=== PATIENT | female | born 1955 | race Caucasian/White ===

== ENCOUNTER → 2024-03-25 08:39 | Outpatient (REF) | payer MEDICARE, OTHER, SELFPAY | LOC: RAD 08:39 | PROVIDERS: ATTENDING PHYSICIAN Internal Medicine Rheumatology; FAMILY PHYSICIAN Physician Assistant Medical | DX: L94.2 Calcinosis cutis (principal) | CPT/HCPCS: 73130 ==

== ENCOUNTER → 2024-12-13 12:44 | Outpatient (REF) | payer MEDICARE, OTHER, SELFPAY | LOC: HWRAD 12:44 | PROVIDERS: ATTENDING PHYSICIAN Internal Medicine Rheumatology; FAMILY PHYSICIAN Physician Assistant Medical | DX: M81.0 Age-related osteoporosis without current pathological fracture (principal) | CPT/HCPCS: 77080 ==

== ENCOUNTER → 2025-05-22 10:41 | Outpatient (REF) | payer MEDICARE, OTHER, SELFPAY | LOC: HWWDC 10:41 | PROVIDERS: ATTENDING PHYSICIAN Internal Medicine | DX: Z12.31 Encounter for screening mammogram for malignant neoplasm of breast (principal) | CPT/HCPCS: 77063; 77067 ==

== ENCOUNTER 2025-08-22 20:34 | Emergency (ER) | payer MEDICARE, OTHER, SELFPAY ==
[2025-08-22 20:42] VITALS: BP 187/111
[2025-08-22 22:50] VITALS: BP 170/114
[2025-08-22 23:00] VITALS: BP 153/80
[2025-08-22 23:30] VITALS: BP 142/87
--- NOTE | 2025-08-23 00:37 | ED.GENMED ---
History of Present Illness
General
Chief Complaint: Back Pain
Source: patient
Time Seen by Provider: 08/23/25 00:12
History of Present Illness
History of Present Illness:
70-year-old female presents complaining of back pain. She was seen at an urgent care and told to come to the emergency room for further imaging. Patient has known scoliosis. She is also suffering from rheumatoid arthritis. She is followed by a
chiropractor who has been working on her back. The pain she has been experiencing recently is in the left lumbar region it does radiate somewhat down to her groin. No focal weakness numbness or tingling. No bowel or bladder dysfunction. Patient
rates her pain a 2 out of 10 at the time of my evaluation. She is been taking Aleve at times for it
Past History
Past History
ED Past Medical History: None
ED Past Surgical History: None
Phy Exam
Physical Exam
Physical Exam:
General: Awake, Alert, Oriented X3. No acute distress.
Vitals: unremarkable
Head: Atraumatic
Eyes: Pupils equal, EOMI
Throat: Airway intact, no exudates
Neck: Trachea midline
Lungs: Clear and equal b/l
Heart: Regular rate, no murmurs
Abd: Soft, Nontender, No pulsatile mass
Back: Left paraspinal muscle tenderness to palpation
Neuro: Nonfocal
Skin: Warm, dry, no rash
Extremities: pulses equal b/l, no edema
Course
Vital Signs
Initial and Last Documented VS:
Initial Vital Signs
Temp Pulse Resp BP Pulse Ox
98.5 F 82 18 187/111 98
08/22/25 20:42 08/22/25 20:42 08/22/25 20:42 08/22/25 20:42 08/22/25 20:42
Last Documented Vital Signs
Temp Pulse Resp BP Pulse Ox
98.5 F 70 21 142/87 98
08/22/25 20:42 08/22/25 23:45 08/22/25 23:45 08/22/25 23:30 08/23/25 00:40
MDM/Problems Addressed
Differential Diagnosis Includes:
DJD, disc herniation,. For scoliosis
MDM/Problems Addressed:
Patient presents with low back pain. I reviewed the note from her urgent care visit. It appears they were concerned the patient might have a compression fracture. Radiology interpreted that low back films and sees no compression fracture. There
are significant degenerative changes and significant scoliosis. No indication for an MRI at this point. Patient stable for discharge home. Follow-up with Renee
*Radiology
Radiology exam reviewed: radiology read reviewed
*Pulse Oximetry
SaO2: 98
Oxygen Mode of Delivery: Room air
Patient hypoxic: no
*Critical Care Note
Total Time (30-74mins, 75-104mins- exclusive of procedures): Not Applicable
ED Attending Note
-
Portions of this chart may have been created with voice recognition software.� Occasional wrong word or��sound alike� substitutions may have occurred due to the inherent limitations of voice recognition software.
Discharge Plan
Departure
Patient Disposition: Home (Routine Discharge)
Date of Disposition: 08/23/25
Time of Disposition: 00:38
Patient with high blood pressure during this ER visit?: No
Condition: Good
Discharge Problem:
Low back pain
Instructions: Low Back Pain (DC)
Prescriptions:
New
metaxalone 800 mg tablet
800 mg PO TID PRN (Reason: muscle pain) Qty: 30 0RF
No Action
levothyroxine 125 MCG tablet
125 mcg PO .EVERY OTHER DAY
Patient Comments:
alternates doses
levothyroxine 150 MCG tablet
150 mcg PO .EVERY OTHER DAY
Patient Comments:
alternates doses
Imitrex: Tab
100 mg PO PRN PRN (Reason: pain)
nitrofurantoin monohyd/m-cryst 100 MG capsule
100 mg PO BID Qty: 9 0RF
Referrals:
Parveen Duran MD [Active, Anesthesiology]
Angel Jones MD [Family Provider, Internal Medicine]
Activity Restrictions/Additional Instructions:
I given you contact information for Dr. Duran who is a specialist in dealing with chronic back pain. I have sent a prescription for Skelaxin which is a muscle relaxant which will hopefully help with your discomfort. Also contact your
jewelry maker to see if an adjustment of your rheumatoid arthritis medications would be in order.
Interventions
Interventions:
*Risk Screen - Suicide Last Done: 08/22/25 20:42
*General Assessment Last Done: 08/22/25 20:42
*Neglect/Abuse Screening Last Done: 08/22/25 20:42
*ED- Fall Risk Assessment Last Done: 08/22/25 20:42
*ED COVID-19 Vaccine History Last Done: 08/22/25 20:42
*Nursing Disposition Last Done: 08/23/25 00:52
ED-Musculoskeletal Assessment Last Done: 08/22/25 22:57
Discharge Date and Time
Discharge Date/Time: 08/23/25 00:52
Print Language: MICRONESIAN
== END 2025-08-23 00:52 | disposition home or self-care (01) ==
LOC: EMR 20:34
PROVIDERS: EMERGENCY PHYSICIAN Emergency Medicine; FAMILY PHYSICIAN Internal Medicine
DX: M54.50 Low back pain, unspecified (principal); M47.816 Spondylosis without myelopathy or radiculopathy, lumbar region; M41.9 Scoliosis, unspecified; M06.9 Rheumatoid arthritis, unspecified
CPT/HCPCS: 99282

== ENCOUNTER → 2025-09-03 07:19 | Outpatient (REF) | payer MEDICARE, OTHER, SELFPAY | LOC: HWRAD 07:19 | PROVIDERS: ATTENDING PHYSICIAN Physician Assistant Medical | DX: I71.43 Infrarenal abdominal aortic aneurysm, without rupture (principal) | CPT/HCPCS: 76770 ==

== ENCOUNTER → 2025-09-19 10:07 | Outpatient (REF) | payer MEDICARE, OTHER, SELFPAY | LOC: HWRAD 10:07 | PROVIDERS: ATTENDING PHYSICIAN Internal Medicine Rheumatology; FAMILY PHYSICIAN Physician Assistant Medical | DX: M05.79 Rheumatoid arthritis with rheumatoid factor of multiple sites without organ or systems involvement (principal) | CPT/HCPCS: 73560 ==

== ENCOUNTER → 2025-10-19 14:01 | Outpatient (REF) | payer MEDICARE, OTHER, SELFPAY | LOC: RAD 14:01 | PROVIDERS: ATTENDING PHYSICIAN Surgery Vascular Surgery; FAMILY PHYSICIAN Physician Assistant Medical | DX: R09.89 Other specified symptoms and signs involving the circulatory and respiratory systems (principal) | CPT/HCPCS: 93880 ==